=== PATIENT | male | born 1980 | race Caucasian/White ===

== ENCOUNTER 2023-12-13 15:31 | Emergency (ER) | payer OTHER, SELFPAY ==
--- NOTE | ~2023-12-13 | XR_ITS ---
EXAMINATION: XR CHEST CLINICAL INFORMATION: Chest pain COMPARISON: None available. TECHNIQUE: Frontal view of the chest was obtained. FINDINGS: vascularity. LUNGS: Lungs are clear. No pneumothorax is seen. BONES: Bony skeleton is intact. XR/XR chest 1V IMPRESSION: Normal chest x-ray.
[2023-12-13 15:40] VITALS: BP 146/76; PULSE 99; O2SAT 95
[2023-12-13 15:42] VITALS: BP 138/84; PULSE 92; RESP 16; TEMP 36.3; O2SAT 96; BMI 29.7
--- NOTE | 2023-12-13 15:50 | ECG_ITS ---
Test Reason : CHESWT TIGHTNESS Blood Pressure : / mmHG Vent. Rate : 085 BPM Atrial Rate : 085 BPM P-R Int : 166 ms QRS Dur : 094 ms QT Int : 346 ms P-R-T Axes : 055 081 058 degrees QTc Int : 411 ms Normal sinus rhythm Normal ECG No previous ECGs available Referred By: Glen Warner Electronically Signed By:JING PORTILLO
--- NOTE | 2023-12-13 15:50 | ED.GENADULT ---
HPI - General Adult General Chief complaint: General Medical Stated complaint: N/V, DIZZY X 30 MINS Time Seen by Provider: 12/13/23 15:41 History of Present Illness HPI narrative: This is a 43-year-old man with a past medical history of anxiety/depression (on bupropion and fluoxetine) who is brought in by EMS for evaluation. Patient reports that about an hour and a after eating lunch he began develop sensation of nausea without emesis, chest tightness and ?shakiness?. He states feeling some chest tightness at this time. He states no nausea or shakiness this at this time. He states ?I am just trying to focus on my breathing?. He states that he feels fine and thinks that ?it is all in my head ?. He states no dyspnea. He states no syncope. He states having headache. He states the headache is like a vice museum attendant around his entire head. He states no neck pain or back pain. He states no abdominal pain. He states no extremity pain. Related Data Allergies Allergy/AdvReac Type Severity Reaction Status Date / Time ibuprofen Allergy Unknown Verified 12/13/23 15:45 No Known Allergies Allergy Unverified 02/29/20 16:31 Environmental Allergy Unknown Unknown Uncoded 12/13/23 15:45 Review of Systems Review of Systems: ROS as per [facility] Social History Social History Advance Directives: No Advance Directives Information Provided: No Physical Exam ED Vital Signs: Vital Signs - 24 hr 12/13/23 15:42 12/13/23 16:00 Temperature 97.4 F 98.3 F Pulse Rate 92 84 Respiratory Rate 16 12 Blood Pressure 138/84 128/82 Pulse Oximetry 96 97 Oxygen Delivery Method Room Air Room Air BMI result Body Mass Index 29.7 Gen: NAD, AOx3 HEENT: NCAT, EOMI, normal conjunctiva CV: RRR Pulm: CTAB, no increased work of breathing GI: Soft, NTND, no rebound, guarding or rigidity Neuro: Grossly non focal Medical Decision Making Medical Decision Making MDM Narrative: Differential diagnosis includes, but is not limited to anxiety, panic attack, ACS, pneumothorax. Patient is afebrile and hemodynamically stable on room air. Exam is benign and reassuring. I reviewed and interpreted labs, which are noncontributory. I reviewed and interpreted EKG, which is unremarkable for any acute findings. I reviewed and interpreted the patient's chest x-ray, which is unremarkable for any acute findings. On re-examination, patient is well-appearing and in no acute distress. ?Patient states symptoms have resolved. ?I do suspect component of anxiety/panic with regards to patient's presentation here today given his history of anxiety and on further history reports that he has previously suffered from ?anxiety attacks similar to today. There is no indication for further emergent evaluation in this otherwise well-appearing patient as above. ?Patient is provided written and verbal instructions, educational materials, recommendations for outpatient follow-up, strict return precautions and teach back is performed. ?Patient states understanding and agreement with plan of care. ?Patient is discharged home in stable and improved condition. Admission/Observation Consideration of admission/observation: Escalation of care including admission/observation considered Lab Data MDM Lab Attestation statement: I reviewed the patient's lab results. 12/13/23 16:05 12/13/23 16:05 Labs: Lab Results 12/13/23 Range/Units 16:05 WBC 5.4 (4.8-10.8) X10*3/uL RBC 4.57 L (4.60-5.80) X10*6/uL Hgb 14.6 (14.0-18.0) g/dl Hct 41.2 L (42.0-52.0) % MCV 90.2 (80.0-98.0) fL MCH 31.9 (27.0-33.0) pg MCHC 35.4 (31.0-36.0) g/dl RDW 11.8 (11.0-16.0) % Plt Count 238 (160-400) X10*3/uL MPV 9.3 L (9.4-12.4) fL Immature Gran % (Auto) 0.4 (0.0-0.4) % Neut % (Auto) 62.1 (45-73) % Lymph % (Auto) 24.3 (20-40) % Esmeralda % (Auto) 8.8 (2-11) % Eos % (Auto) 3.5 (0-4) % Baso % (Auto) 0.9 (0-2) % Lymph # (Auto) 1.3 (1.2-4.9) X10*3/uL Esmeralda # (Auto) 0.5 (0.1-1.2) X10*3/uL Eos # (Auto) 0.2 (0.0-0.4) X10*3/uL Baso # (Auto) 0.1 (0.0-0.2) X10*3/uL Abs Immat Gran (auto) 0.02 (0.00-0.03) X10*3/uL Absolute Neuts (auto) 3.4 (2.0-8.3) x10*3/uL Absolute Nucleated RBC 0.000 (0.0-0.012) X10*3/uL Nucleated RBC % (auto) 0.0 (0.0-0.2) /100WBC Sodium 136 (135-145) mmol/L Potassium 3.9 (3.3-5.1) mmol/L Chloride 103 (96-108) mmol/L Carbon Dioxide 24 (22-29) mmol/L Anion Gap 13 (12-20) BUN 15 (9-16) mg/dL Creatinine 1.29 (0.5-1.4) mg/dL Estim Creat Clear Calc 83.2 Estimated GFR > 60 Random Glucose 114 (60-115) mg/dL Calcium 8.8 (8.4-10.2) mg/dL Troponin I High Sens < 2.7 (<3.5-35.0) ng/L Independent Interpretation I performed an independent interpretation of an: EKG and Plain X-Ray Interpretation: EKG shows sinus rhythm at 85 beats per minute, OK 166, QRS 94, QTC 411, no STEMI (no previous for comparison) Chest x-ray demonstrates no pneumothorax Radiology Impression Discussion of test interpretation with radiology: I have reviewed the radiologist's reading. Radiologist Impression: XR/XR chest 1V IMPRESSION: Normal chest x-ray. Dictated By: Fidencio Calvert Signed By: <Electronically signed by Fidencio Calvert in OV> 12/13/23 [id number] Discharge Plan Discharge Clinical Impression: Chest pain Patient Disposition: Home, Self-Care Instructions: Chest Pain (ED) Additional Instructions: You were seen and evaluated in the emergency room. Your vital signs were normal and he did not have fever. ? Your blood work was normal. Your chest x-ray and EKG were normal. Please follow-up with your primary care doctor in the next 5-7 days. ? Please return to the emergency room if you develop any worsening symptoms including, but not limited to chest pain or difficulty breathing. ? Print Language: Burkinan
[2023-12-13 16:00] VITALS: BP 128/82; PULSE 84; RESP 12; TEMP 36.8; O2SAT 97
[2023-12-13 16:08] LABS: MANUAL DIFF FLAG NO
[2023-12-13 16:14] LABS: Basophils Absolute Auto 0.1 X10*3/uL (0.0-0.2); Basophils Percent Auto 0.9 % (0-2); Eosinophils Absolute Auto 0.2 X10*3/uL (0.0-0.4); Eosinophils Percent Auto 3.5 % (0-4); Hematocrit 41.2 % (42.0-52.0); Hemoglobin 14.6 g/dl (14.0-18.0); Imm Gran Abs Auto 0.02 X10*3/uL (0.00-0.03); Imm Gran Pct Auto 0.4 % (0.0-0.4); Lymphocytes Absolute Auto 1.3 X10*3/uL (1.2-4.9); Lymphocytes Percent Auto 24.3 % (20-40); Mean Corpuscular HGB Conc 35.4 g/dl (31.0-36.0); Mean Corpuscular Hemoglobin 31.9 pg (27.0-33.0); Mean Corpuscular Volume 90.2 fL (80.0-98.0); Mean Platelet Volume 9.3 fL (9.4-12.4); Monocytes Absolute Auto 0.5 X10*3/uL (0.1-1.2); Monocytes Percent Auto 8.8 % (2-11); Neutrophils Absolute Auto 3.4 x10*3/uL (2.0-8.3); Neutrophils Percent Auto 62.1 % (45-73); Platelet Count 238 X10*3/uL (160-400); Red Blood Count 4.57 X10*6/uL (4.60-5.80); Red Cell Distribution Width 11.8 % (11.0-16.0); White Blood Count 5.4 X10*3/uL (4.8-10.8)
[2023-12-13 16:27] LABS: Anion Gap 13 (12-20); Blood Urea Nitrogen 15 mg/dL (9-16); Calcium 8.8 mg/dL (8.4-10.2); Carbon Dioxide 24 mmol/L (22-29); Chloride 103 mmol/L (96-108); Creatinine Clr Calc Pharmacy 83.2; Estimated Glomerular Filt Rate > 60; Glucose Random 114 mg/dL (60-115); Potassium 3.9 mmol/L (3.3-5.1); Sodium 136 mmol/L (135-145)
[2023-12-13 16:36] LABS: Troponin-I High Sensitivity < 2.7 ng/L (<3.5-35.0)
== END 2023-12-13 16:59 | disposition home or self-care (01) ==
PROVIDERS: Emergency Provider Emergency Medicine; PCP Internal Medicine
DX: R07.89 Other chest pain (principal); R11.2 Nausea with vomiting, unspecified; R42 Dizziness and giddiness; R51.9 Headache, unspecified; Z79.899 Other long term (current) drug therapy
CPT/HCPCS: 36415; 71045; 80048; 84484; 85025; 93005; 99283

== ENCOUNTER → 2023-12-13 15:50 | Outpatient (BNV) | payer OTHER, SELFPAY | PROVIDERS: Emergency Provider Emergency Medicine; PCP Internal Medicine; Visit Provider Internal Medicine | DX: R07.89 Other chest pain (principal) | CPT/HCPCS: 93010 ==